=== PATIENT | female | born 1995 | race American Indian/Alaskan Native ===

== ENCOUNTER → 2024-07-08 11:10 | Outpatient (REF) | payer OTHER, SELFPAY ==
[2024-07-10 07:41] LABS: Quantiferon Mitogen minus NIL 9.96 IU/mL; Quantiferon NIL 0.04 IU/mL; Quantiferon TB Gold Plus Negative (Negative)
== END ==
LOC: OHS 11:10
PROVIDERS: ATTENDING PHYSICIAN Nurse Practitioner Family
DX: Z23 Encounter for immunization (principal)
CPT/HCPCS: 36415; 86480

== ENCOUNTER → 2025-05-26 07:03 | Outpatient (REF) | payer OTHER, SELFPAY ==
[2025-05-26 08:18] LABS: Beta HCG Quantitative < 2.39 mIU/ml; FSH 5.8 mIU/ml
== END ==
LOC: REG 07:03
PROVIDERS: ATTENDING PHYSICIAN Obstetrics & Gynecology
DX: N91.1 Secondary amenorrhea (principal)
CPT/HCPCS: 36415; 82627; 83001; 83002; 83525; 84146; 84270; 84402; 84403; 84439; 84443; 84702